=== PATIENT | male | born 1980 | race Caucasian/White ===

== ENCOUNTER 2017-11-04 18:13 | Emergency (ER) | payer SELFPAY ==
--- NOTE | 2017-11-04 18:26 | ER Report ---
History and Physical Time Seen By MD: 18:26 Hx. of Stated Complaint: patient was trying to get his trailer onto the hitch by standing on and slipped. he has a large gouge on his right williamson HPI/ROS CHIEF COMPLAINT: williamson laceration HISTORY OF PRESENT ILLNESS: This is a 36 year old male. He was standing on his trailer hitch trying to connect his camper, slipped and has a large gouge in his anterior right williamson. Bleeding controlled. Normal sensation. Does not remember his last tetanus. Allergies: Coded Allergies: No Known Drug Allergies (Unverified , 11/04/17) Home Meds Active Scripts Cephalexin Monohydrate (CEPHALEXIN) 500 Mg Cap, 500 MG PO Q6H, #20 CAP 0 Refills Prov:MERCEDES HAWKINS MD 11/04/17 Reviewed Nurses Notes: Yes Constitutional Vital Sign - Last 24 Hours 11/04/17 11/04/17 11/04/17 11/04/17 18:18 18:23 18:30 18:43 Temp 98.1 Pulse 79 86 Resp 20 B/P (MAP) 134/89 (104) 134/89 119/85 (96) Pulse Ox 94 95 O2 Delivery Room Air 11/04/17 18:58 Pulse 85 Resp 16 B/P (MAP) 138/88 (105) Pulse Ox 95 O2 Delivery Room Air Physical Exam General: Alert, no acute distress. Skin: about 5cm macerated flap anterior chin. Bleeding controlled. Some more proximal shallow abrasions. Cardiovascular: Normal capillary refill. Neuro: Normal sensation Musculoskeletal: No compromise of motor function, no signs of tendon or muscle compromise. Medical Decision Making ED Course/Re-evaluation ED Course Procedure: Laceration Repair Verbal consent from patient after discussing repair options, risks and benefits. Wound cleaned extensively with Hibiclens and saline. Anesthesia: 1% lidocaine with epinephrine and 0.5% Bupivacaine without epinephrine. Location: right anterior williamson. Length: 5cm. Character: macerated flap. There were no deep structures involved. No tendon injury was identified. Wound repair: 5 interrupted 4-0 ethilon sutures. The wound repair was simple and performed by myself. Wound care instructions discussed. Sutures need to be removed in 7 days. Tetanus booster given. Cephalexin 500mg four times a day for 5 days. Decision to Disposition Date: Nov 04, 2017 Decision to Disposition Time: 18:55 Depart Departure Latest Vital Signs Vital Signs Date Time Temp Pulse Resp B/P (MAP) Pulse Ox O2 Delivery O2 Flow Rate FiO2 11/04/17 18:58 85 16 138/88 (105) 95 Room Air 11/04/17 18:23 98.1 Impression: Primary Impression: Laceration of right lower extremity Condition: Improved Disposition: HOME OR SELF-CARE New Scripts Cephalexin Monohydrate (CEPHALEXIN) 500 Mg Cap 500 MG PO Q6H, #20 CAP 0 Refills Prov: MERCEDES HAWKINS MD 11/04/17 Patient Instructions: Laceration (ED) Additional Instructions: Wound Care: Wash the wound once a day with soap and water. Dry the wound and apply a small amount of antibiotic ointment with a clean dressing. If the dressing becomes wet or dirty, repeat cleaning and dressing as above. No soaking the wound; no swimming. Stitches need to be removed in 5-7 days. Pain Control: Use Tylenol or ibuprofen for pain. Using and ice pack can help reduce swelling. Antibiotic: Cephalexin 500mg 4 times a day for 5 days. Problem Qualifiers Primary Impression: Laceration of right lower extremity Encounter type: initial encounter Qualified Codes: S81.811A - Laceration without foreign body, right lower leg, initial encounter MERCEDES HAWKINS MD Nov 04, 2017 18:26
[2017-11-04] MEDS ORDERED: DIPHTH/TETANUS/ACEL. PERTUSSIS IM ONLY ONE (18:30)
[2017-11-04] MEDS ORDERED: CEPH500C24 PO (18:56)
[2017-11-04 18:58] VITALS: BP 138/88
== END 2017-11-04 19:06 | disposition home or self-care (01) ==
LOC: ER 18:42
DX: S81.811A Laceration without foreign body, right lower leg, initial encounter (principal); W17.89XA Other fall from one level to another, initial encounter
CPT/HCPCS: 90471; 90715; 99283